=== PATIENT | female | born 1985 | race Asian ===

== ENCOUNTER → 2019-02-19 | Outpatient (CLI) | payer OTHER ==
--- NOTE | 2019-02-19 11:15 | RADIOLOGY IMAGING REPORT ---
FACILITY: [facility] - [place], [place] PATIENT NAME: Isha Pozo : 1985 MR: [id number] V: [id number] EXAM DATE: ORDERING PHYSICIAN: CR BARLOW TECHNOLOGIST: [place] [facility] [place] Isha Pozo : 1985 Visit/Account:[id number] Date of Sevice: 02/19/2019 Technique: CHEST PA LAT HISTORY: Cough COMPARISON: None available Findings: The lungs are clear. No pleural effusion or pneumothorax. The cardiomediastinal silhouett e is normal. Impression: 1. No acute cardiopulmonary process. Report Dictated By: Shen Cedeño DO at 02/19/2019 11:10 AM Report E-Signed By: Shen Cedeño DO at 02/19/2019 11:10 AM WSN:[id number]
== END ==
LOC: RAD 10:38
PROVIDERS: ATTEND Nurse Practitioner Family
DX: R05 Cough (principal)
CPT/HCPCS: 71046

== ENCOUNTER → 2019-04-14 | Outpatient (CLI) | payer OTHER ==
[~2019-04-14] MED LIST: IOPAMIDOL 76% 100 ML INFUS BTL 100 ML ONE
--- NOTE | 2019-04-14 09:45 | RADIOLOGY IMAGING REPORT ---
FACILITY: [facility] PATIENT NAME: Isha Pozo : 1985 MR: [id number] V: [id number] EXAM DATE: ORDERING PHYSICIAN: CR BARLOW TECHNOLOGIST: Location[place] [facility] [place] Patient: Isha Pozo : 1985 Visit/Account:[id number] Date of Sevice: 04/14/2019 CT ABDOMEN PELVIS W/ CON HISTORY: Left upper quadrant pain, history of abdominal surgery TECHNIQUE: Following administration of IV contrast contiguous axial images acquired through the abdom en/pelvis. Coronal and sagittal reformatting also performed.Dose Lowering Technique One of the following dose optimization techniques was utilized in the performance of this exam: Autom ated exposure control; adjustment of the mA and/or kV according to the patient's size; or use of an i terative reconstruction technique. Specific details can be referenced in the facility's radiology C T exam operational policy. CONTRAST: 75 mL Isovue-[id number] COMPARISON: None. FINDINGS: Visualized lung bases: Negative. Hepatobiliary: There is a small calcification along the superior border lateral segment of the left lobe of the liver Spleen: Accessory splenules Adrenals: Negative. Pancreas: Negative. Kidneys ureters or bladder: Negative. 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 There is a 2 cm right ovarian cyst w ith a trace amount of free pelvic fluid. GI: There is a moderate amount of fecal material seen throughout the colon which can be seen with co nstipation . Vessels/spaces/nodes: There shotty retroperitoneal lymph nodes Bones/soft tissues: Negative. Additional findings: None pertinent. 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
== END ==
LOC: CT 04-09 00:16
PROVIDERS: ATTEND Nurse Practitioner Family
DX: N85.4 Malposition of uterus (principal); N83.201 Unspecified ovarian cyst, right side
CPT/HCPCS: 74177; Q9967